=== PATIENT | female | born 1965 | race African-American/Black ===

== ENCOUNTER → 2018-03-24 | Outpatient (CLI) | payer OTHER ==
--- NOTE | 2018-03-24 12:54 | DIREP ---
PROCEDURE:XRAY SPINE LUMBAR MIN 4 VWS COMPARISON:None. INDICATIONS:M54.5 LOW BACK PAIN, M32.9 Systemic lupus erythematosus TECHNIQUE:AP, lateral, and coned down lateral views of the lumbar spine are provided. FINDINGS: ALIGNMENT:Normal. VERTEBRAE:Normal. DISK SPACES:Normal. SPONDYLOLISTHESIS:None. SACROILIAC JOINTS:Normal. OTHER:Normal. CONCLUSION:Normal lumbar spine Dictated by: Dashawn Sheehan DO on 03/24/2018 at 12:52 PM
== END | disposition home or self-care (01) ==
LOC: RAD 10:00
PROVIDERS: ATTEND Internal Medicine
DX: M54.5 Low back pain (principal); M32.9 Systemic lupus erythematosus, unspecified
CPT/HCPCS: 72110

== ENCOUNTER 2018-07-17 01:45 | Inpatient (IN) | payer OTHER ==
[2018-07-17] VITALS (7 sets, daily range): BP systolic 129–143; BP diastolic 52–95
[~2018-07-17] VITALS: Ht 160 cm; Wt 132.0 kg
--- NOTE | 2018-07-17 02:16 | ER.PDOC ---
General Chief Complaint: Requesting Medical Care Stated Complaint: R SIDE PAIN Time seen by MD: 02:00 Source: patient Exam Limitations: no limitations History of Present Illness Initial Comments Pt c/o RUQ/R chest pain since about 36 hours. Sharp pleuritic pain worse with inspiration. Also worsens when lying supine or on R side. No nausea or fever Severity/Quality: moderate Radiation: RUQ, epigastric, chest Associated Symptoms: denies symptoms Exacerbated by: supine, deep breaths Relieved By: upright position Allergies: Coded Allergies: No Known Allergies (Unverified , 07/17/18) Past Medical History Medical History: diabetes, high cholesterol, hypertension Constitutional: no symptoms reported EENTM: no symptoms reported Respiratory: other (Pain with deep inspiration) Cardiovascular: no symptoms reported Gastrointestinal: abdominal pain Genitourinary: no symptoms reported Musculoskeletal: no symptoms reported Skin: no symptoms reported Psychiatric/Neurological: no symptoms reported Endocrine: no symptoms reported Physical Exam General Appearance: Moderate Distress HEENT: PERRL/EOMI, Normal ENT Inspection, TMs Normal, Pharynx Normal Neck: Non-Tender, Full Range of Motion, Supple, Normal Inspection Respiratory: chest non-tender, lungs clear, normal breath sounds, other (splinting on deep inspiration) Cardiovascular: Normal Peripheral Pulses, Regular Rate, Rhythm, No Edema, No Gallop, No JVD, No Murmur 1 - tender Gastrointestinal: Normal Bowel Sounds, Guarding, Tenderness (RUQ) Back: Normal Inspection, No CVA Tenderness, No Vertebral Tenderness Extremities: Normal Range of Motion, Non-Tender, Normal Inspection, No Pedal Edema, No Calf Tenderness, Normal Capillary Refill, Pelvis Stable 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, No Motor/Sensory Deficits, Alert, Normal Mood/Affect, Oriented x 3 Skin: Normal Color, Warm/Dry EKG/XRAY/CT/US XRAY Comments: RLL infiltrate with small effusion Departure Time of Disposition: 03:31 Disposition: 09 ADMITTED INPATIENT Impression: Primary Impression: Pneumonia Condition: Stable Referrals: ROCKY WILKERSON MD (PCP) PRIMARY CARE PROVIDER ALFONSO GALEANO MD Duration or Time Spent with Pa: 30 Problem Qualifiers Primary Impression: Pneumonia Pneumonia type: due to unspecified organism Laterality: right Lung location: lower lobe of lung Qualified Codes: J18.1 - Lobar pneumonia, unspecified organism JOSS HULL MD July 17, 2018 02:16
[2018-07-17 02:21] LABS: BILIRUBIN,URINE NEGATIVE (NEGATIVE); UROBILINOGEN,URINE NORMAL (NEGATIVE)
[2018-07-17] MEDS ORDERED: PHENERGAN IV STA (02:21)
[2018-07-17] MEDS ORDERED: MORPHINE SULFATE IV STA (02:21)
[2018-07-17 02:23] LABS: BASOPHIL % 0.5 % (0.0-0.2); EOSINOPHIL % 0.5 % (0.0-5.0); LYMPHOCYTES # 2.1 10^3/uL (1.0-4.8); LYMPHOCYTES % 24.1 % (24.0-44.0); MEAN CELL HGB 26.1 pg (26-34); MEAN CELL HGB CONCENTRATION 33.2 g/dL (33-37); MEAN CORP VOLUME 78.6 fL (78-100); MONOCYTES # 0.9 10^3/uL (0.3-0.8); NEUTROPHIL # 5.6 10^3/uL (1.8-7.7); NEUTROPHILS % 64.8 % (41.0-85.0); RED CELL DISTRIBUTION WIDTH 15.9 % (11.5-14.5); WHITE BLOOD CELL 8.7 10^3/uL (4.5-11.0)
[2018-07-17 02:30] LABS: APPEARANCE,URINE CLEAR (CLEAR); UA COLOR YELLOW (YELLOW)
[2018-07-17] MEDS ORDERED: PHENERGAN ONE (02:31)
[2018-07-17 02:39] LABS: CALCIUM 9.9 mg/dL (8.4-10.5); CARBON DIOXIDE 27.4 mmol/L (20.0-32)
--- NOTE | 2018-07-17 02:40 | NUR ---
Critical Lab Value Critical Lab Value called back from lab. D-Dimer:1.65. Notified Dr. Patton of lab value
--- NOTE | 2018-07-17 03:12 | DIREP ---
PROCEDURE:CHEST 2 VIEWS COMPARISON:None. INDICATIONS:RUQ/R chest pain FINDINGS: LUNGS/PLEURA:There are streaky infiltrates in the bilateral lung bases. No evidence of consolidation or pleural effusion VASCULATURE:Normal. Unremarkable pulmonary vasculature. CARDIAC:Normal. No cardiac silhouette abnormality or cardiomegaly. MEDIASTINUM:Normal. No visible mass or adenopathy. BONES:Normal. No fracture or visible bony lesion. OTHER:Negative. CONCLUSION:Bilateral basilar atelectasis versus developing pneumonia Dictated by: Jennifer Bautista M.D. on 07/17/2018 at 03:09 AM
--- NOTE | 2018-07-17 03:17 | DIREP ---
PROCEDURE:CT ABD/PELVIS WITH CONTRAST TECHNIQUE:No oral contrast was given. Following the intravenous administration of contrast material, axial cuts were obtained from the dome of the diaphragm to the ischial tuberosities. The images were viewed at lung, liver, bone, and soft tissue settings. Sagittal and coronal reconstructions are provided. COMPARISON:None. INDICATIONS:RUQ/R chest pain FINDINGS: LOWER CHEST:There is a small right pleural effusion. Streaky infiltrates are present in the right lung base. LIVER:Normal. BILIARY:Normal. PANCREAS:Normal. SPLEEN:Normal. URINARY TRACT:Normal. ADRENALS:Normal. AORTA/VASCULAR:Normal. RETROPERITONEUM:Normal. BOWEL/MESENTERY:Bowel evaluation is limited by the lack of oral contrast. No evidence of bowel obstruction, free intraperitoneal air, or abscess. The appendix is normal. ABDOMINAL WALL:Normal. PELVIS:Normal. BONES:Normal. OTHER:Normal. CONCLUSION: Streaky infiltrate in the right lung base with a small right parapneumonic effusion suggestive of a developing right lower lobe pneumonia Dictated by: Jennifer Bautista M.D. on 07/17/2018 at 03:12 AM
--- NOTE | 2018-07-17 03:23 | NUR ---
Shari Fonseca on phone with Dr. Mccarthy
[2018-07-17] MEDS ORDERED: ROCEPHIN 1,000 MG in NS 100ML 100 ML IV STA (03:26)
[2018-07-17] MEDS ORDERED: ZITHROMAX 500 MG in NS 250ML 250 ML IV STA (03:26)
[2018-07-17] MEDS ORDERED: LOVENOX SQ STA (03:33)
[2018-07-17] MEDS ORDERED: LISI1TAB7 PO (03:37)
[2018-07-17] MEDS ORDERED: QUET200T PO (03:37)
[2018-07-17] MEDS ORDERED: METF500T17 PO (03:37)
[2018-07-17] MEDS ORDERED: TRAM50TA PO (03:37)
[2018-07-17] MEDS ORDERED: GLIM2TAB2 PO (03:37)
[2018-07-17] MEDS ORDERED: TRAZ-163 PO (03:37)
[2018-07-17] MEDS ORDERED: ATOR-2 PO (03:37)
[2018-07-17] MEDS ORDERED: HYDR-3097 PO (03:37)
[2018-07-17] MEDS ORDERED: ROCEPHIN ONE ×2 (03:42→22:15)
[2018-07-17] MEDS ORDERED: NS 250ML 250 ML IV ONE ×2 (03:42→23:11)
[2018-07-17] MEDS ORDERED: NS 100ML 100 ML IV ONE ×2 (03:42→22:16)
[2018-07-17] MEDS ORDERED: LOVENOX SQ ONE ×3 (03:43→03:50)
--- NOTE | 2018-07-17 04:25 | NUR ---
Report Report given to Giovanni on med Surg
--- NOTE | 2018-07-17 12:03 | PCM.HP ---
HISTORY & PHYSICAL HISTORY & PHYSICAL DATE OF ADMISSION: CHIEF COMPLAINT: 53 yo female with mmp including DM, HTN, and ADAN comes in with R chest pain and RUQ abdominal pain. CT and CXR c/w R basilar pneumonia and parapneumonic effusion. Admit for IV Abx. H&P # [id number] HISTORY OF PRESENT ILLNESS: ALLERGIES: CURRENT MEDICATIONS: PAST MEDICAL HISTORY: SOCIAL HISTORY: FAMILY HISTORY: REVIEW OF SYSTEMS: PHYSICAL EXAMINATION: GENERAL: VITAL SIGNS: HEENT: NECK: LUNGS: HEART: ABDOMEN: EXTREMITIES: NEUROLOGIC: LABORATORY DATA: IMPRESSION: CARE PLAN: ALFONSO GALEANO MD July 17, 2018 12:03
--- NOTE | 2018-07-17 12:17 | HPH ---
ADMIT DATE: 07/17/2018 Dictating a history and physical at [facility]. CHIEF COMPLAINT: Right upper quadrant and lower chest pain. HISTORY OF PRESENT ILLNESS: This is a 53-year-old female with multiple medical problems including diabetes and hypertension, who presents to the Emergency Department with complaints of the right upper quadrant abdominal pain and right lower chest pain for the last 2 days. She states that the pain started suddenly over a matter of one hour and she describes the pain as sharp, with worsening pain whenever she takes a deep breath. She states pain is also worse when lying on her right side. There are no alleviating factors. She has not had any other chest pain or shortness of breath. No nausea or fever. She has had an intermittent cough, which makes the pain in the right lower chest worse. She has had slight increase in weakness. She denies ever having symptoms like this in the past. She denies any sick contacts. PAST MEDICAL HISTORY: 1. Diabetes mellitus type 2. 2. Hypertension. 3. Hyperlipidemia. 4. Morbid obesity. 5. Obstructive sleep apnea. MEDICATIONS: See admit medication reconciliation form. PAST SURGICAL HISTORY: Reviewed. SOCIAL HISTORY: Alcohol, tobacco: None. Recreational drugs: None. The patient lives in [place] with family. FAMILY HISTORY: Multiple family members with hypertension and diabetes. REVIEW OF SYSTEMS: GENERAL: Overall, positive for weakness, fatigue and malaise over the last 2 days. Denies fever. CARDIAC: Denies typical cardiac pain, but does have right-sided lower chest pain. No orthopnea, PND or palpitation. RESPIRATORY: Positive for cough, but no shortness of breath. Slight increased in right-sided chest pain with deep breath. GASTROINTESTINAL: Positive for nausea, but no constipation, diarrhea, or vomiting. Positive for right upper quadrant pain. GENITOURINARY: Denies dysuria, frequency, hematuria or nocturia. HEMATOLOGIC: No easy bleeding or bruising. ENDOCRINE: No recent weight loss or weight gain. No temperature intolerance. HEMATOLOGIC: No easy bleeding or bruising. NEUROLOGIC: Denies headache, paresthesias or dizziness. MUSCULOSKELETAL: No complaints of bones, muscles or joints. PSYCHIATRIC: Denies depression or anxiety symptoms. OBJECTIVE: VITAL SIGNS: Temperature 98.3, pulse 70, respirations 16, blood pressure 139/72, pulse ox 90% on room air. GENERAL: This is a morbidly obese female, in no acute distress. HEENT: Atraumatic, normocephalic. Sclerae are clear and anicteric. Oral mucosa is moist. NECK: Soft, supple, normal range of motion. No bruits, goiter, mass or adenopathy. LUNGS: Decreased breath sounds at right base, otherwise clear. HEART: Regular rate and rhythm without murmurs, S3 or S4. ABDOMEN: Soft, nontender, nondistended. Positive bowel sounds. No masses felt. EXTREMITIES: Warm and well perfused without evidence of edema, cyanosis or clubbing. NEUROLOGIC: Cranial nerves 2-12 are grossly intact and symmetric. SKIN: Intact. LABORATORY DATA: Sodium 141, potassium 4.1, BUN 18, creatinine 1.33, glucose 117. WBC 8.7, hemoglobin 17, hematocrit 51.2, platelets 298. Urinalysis 5-10 wbc's with rare bacteria. CT abdomen and pelvis -- "streaky infiltrate in the right lung base with a small right parapneumonic effusion suggestive of a developing right lower lobe pneumonia." Chest x-ray -- atelectasis and infiltrate in the right base. ASSESSMENT: 1. Right basilar community-acquired pneumonia. 2. Right upper quadrant abdominal pain. 3. Right-sided chest pain. 4. Hypertension. 5. Diabetes mellitus type 2. 6. Obstructive sleep apnea. 7. Erythrocytosis. PLAN: 1. The patient is admitted to [facility] for further evaluation and management. 2. Start IV antibiotic coverage for community-acquired pneumonia. 3. Aggressive IV fluid resuscitation. 4. Nebulizer treatments as needed. 5. Continue CPAP at night per patient's prescription. 6. Stress ulcer and DVT prophylaxis. Marcel Mccarthy MD DR: LUCIANO/itzel JOB# [id number]
--- NOTE | 2018-07-17 14:21 | NUR ---
DISCHARGE PLAN CM VISITED WITH PT REGARDING D/C PLAN. SHE SAID SHE LIVES AT HOME ALONE AND IS INDEPENDENT OF ADLS. SHE IS NOT EMPLOYED BUT IS ON SSI DISABILITY. SHE SAID SHE WAS HERE IN [place] SEEING HER BOYFRIEND. PATIENT SAID SHE DOES HAVE A CANE THAT SHE USES AT TIME WITH AMBULATION. HER PCP IS DR RANGEL. SHE DOES HAVE THE FINANCIAL ABILITY TO PAY FOR HER MEDICATIONS AND DENIES FURTHER RESOURCES OR NEEDS AT THIS TIME. D/C GOAL IS FOR PT TO D/C BACK HOME ALONE AND CONTINUE ROUTINE CARE THERE. CM WILL CONTINUE TO FOLLOW NEEDS OF PT.
--- NOTE | 2018-07-17 15:36 | NUR ---
NEW ORDERS GIVEN FROM DR. GALEANO: GIVE TORADOL 30MG Q6 PRN.
[2018-07-17] MEDS: TORADOL IV PRN ×2 (15:40→22:46)
--- NOTE | 2018-07-17 18:50 | NUR ---
REPORT RECEIVED FROM MAMIE MIR RN. ASSUMED PT CARE.
--- NOTE | 2018-07-17 22:05 | NUR ---
TELEPHONE ORDER PER DR GALEANO: DR GALEANO NOTIFIED THAT PT DOES NOT HAVE ANY ANTIBIOTICS ON EMAR. TELEPHONE ORDER GIVEN FOR: 1 - ZITHROMAX 500MG IV Q24HRS 2 - ROCEPHIN 1GM IV Q 12HRS TO [facility].
[2018-07-17] MEDS ORDERED: NS 500ML 500 ML IV ONE (22:17)
[2018-07-17] MEDS: ROCEPHIN 1,000 MG in NS 100ML 100 ML IV SCH (22:30)
[2018-07-17] MEDS: ZITHROMAX 500 MG in NS 250ML 250 ML IV SCH (23:27)
[2018-07-18 00:28] VITALS: BP 119/68
[2018-07-18 04:19] VITALS: BP 141/72
[2018-07-18 05:15] LABS: HEMOGLOBIN 15.1 g/dL (12.0-15.0); MEAN CELL HGB 26.2 pg (26-34); MEAN CELL HGB CONCENTRATION 32.9 g/dL (33-37); MEAN CORP VOLUME 79.5 fL (78-100); MEAN PLATELET VOLUME 11.2 fL (7.8-11.0); RED CELL DISTRIBUTION WIDTH 15.5 % (11.5-14.5); WHITE BLOOD CELL 9.1 10^3/uL (4.5-11.0)
[2018-07-18 05:38] LABS: CALCIUM 9.5 mg/dL (8.4-10.5); CARBON DIOXIDE 28.1 mmol/L (20.0-32)
--- NOTE | 2018-07-18 07:12 | NUR ---
REPORT TO ONCOMING SHIFT. PT CARE RELINQUISHED.
--- NOTE | 2018-07-18 07:20 | NUR ---
RESTING QUIETLY IN BED. DENIES COMPLAINTS. VS TAKEN.
--- NOTE | 2018-07-18 07:50 | NUR ---
BREAKFAST TRAY SERVED. PT SITTING UP IN BED. DENIES COMPLAINTS
[2018-07-18] MEDS: PROTONIX PO SCH (08:24)
--- NOTE | 2018-07-18 08:24 | NUR ---
MED GIVEN. PT SITTING UP IN BED EATING BREAKFAST. SMILING AND LAUGHING AND DENIES COMPLAINTS.
[2018-07-18 08:43] VITALS: BP 151/88
[2018-07-18] MEDS: TORADOL IV PRN (08:46)
--- NOTE | 2018-07-18 08:46 | NUR ---
TORADOL IV GIVEN FOR PAIN 8/10 SHARP PAIN "UNDER RIBS" RIGHT SIDE. PT GIVEN TEACHING ON MED GIVEN, S/E AND PURPOSE. QUESTIONS WERE ANSWERED. PT SITTING UP IN BED DRINKING COFFEE.
--- NOTE | 2018-07-18 09:10 | NUR ---
SITTING UP IN BED USING IS PULLING 1500ML
[2018-07-18] MEDS: ROCEPHIN 1,000 MG in NS 100ML 100 ML IV SCH ×2 (09:23→20:41)
--- NOTE | 2018-07-18 09:25 | NUR ---
REPORTS PAIN RELIEF. SITTING UP IN BED WATCHING TV. DENIES COMPLAINTS
--- NOTE | 2018-07-18 11:45 | NUR ---
RESTING QUIETLY IN BED. LUNCH TRAY SERVED. DENIES COMPLAINTS
[2018-07-18 12:10] VITALS: BP 140/74
--- NOTE | 2018-07-18 13:25 | NUR ---
RESTING QUIETLY IN BED. DENIES COMPLAINTS
--- NOTE | 2018-07-18 15:45 | NUR ---
RESTING QUIETLY IN BED. EYES CLOSED. RESP UNLABORED.
[2018-07-18 17:00] VITALS: BP 147/86
--- NOTE | 2018-07-18 17:00 | NUR ---
SUPPER TRAY TAKEN AND VS TAKEN. PT DENIES COMPLAINTS.
--- NOTE | 2018-07-18 17:59 | PRM.PN ---
Subjective Subjective Date: July 18, 2018 Time: 17:55 Subjective Feeling better overall. Less SOB. Cough improving. VTE VTE Risk Total Score: 2 VTE Risk Score VTE Risk: Score 0-1 = Low Risk (Aggressive mobilization; early ambulation; no VTE prophylaxis required) Score 2: Moderate Risk (Intermittent/Pneumatic Compression Device OR Lovenox/Heparin/Coumadin) Score 3-4: High Risk (Intermittent/Pneumatic Compression Device AND Lovenox/Heparin/Coumadin) Score > or =5: Highest Risk (Intermittent/Pneumatic Compression Device AND Lovenox/Heparin/Coumadin) Review of Systems Constitutional: No: Fever, Chills, Sweats, Weakness, Malaise, Other Respiratory: Cough, Shortness of breath; No: Dry, SOB with excertion, Wheezing, Hemoptysis, Pleuritic Pain, Sputum, Wheezing, Other Cardiovascular: No: Chest Pain, Palpitations, Orthopnea, Paroxysmal Noc. Dyspnea, Edema, Lt Headedness, Other Gastrointestinal: No: Nausea, Vomiting, Abdominal Pain, Diarrhea, Constipation, Melena, Hematochezia, Other Genitourinary: No Dysuria, No Frequency, No Incontinence, No Hematuria, No Retention, No Other Neurological: No: Weakness, Numbness, Incoordination, Change in speech, Confusion, Seizures, Other Allergies: Coded Allergies: No Known Allergies (Unverified , 07/17/18) Scheduled Atorvastatin Calcium (Atorvastatin Calcium), 80 MG PO DAILY24, (Reported) Glimepiride (Glimepiride), 2 MG PO DAILY24, (Reported) Hydrocodone Bit/Acetaminophen (Hobbs 5-325), 5-325 MG PO QID, (Reported) Lisinopril/Hydrochlorothiazide (Lisinopril-Hctz 20-25 Mg Tab), 20-25 MG PO DAILY24, (Reported) Metformin Hcl (Metformin Hcl), 500 MG PO DAILY24, (Reported) Quetiapine Fumarate (Quetiapine Fumarate), 200 MG PO DAILY24, (Reported) Tramadol Hcl (Tramadol Hcl), 50 MG PO QID, (Reported) Trazodone Hcl (Trazodone Hcl), 50 MG PO DAILY24, (Reported) Objective Vitals and I/O Vital Sign - Last 24 Hours 07/17/18 07/17/18 07/18/18 07/18/18 19:53 22:57 00:28 04:19 Temp 98.4 98.5 98.8 98.4 98.5 98.8 Pulse 65 54 54 Resp 18 16 16 B/P (MAP) 129/73 (91) 119/68 (85) 141/72 (95) Pulse Ox 90 94 96 O2 Delivery Room Air Room Air Room Air Room Air 07/18/18 07/18/18 07/18/18 08:43 08:53 12:10 Temp 98.8 98.1 98.8 98.1 Pulse 56 60 Resp 20 18 B/P (MAP) 151/88 (109) 140/74 (96) Pulse Ox 95 96 O2 Delivery Room Air Room Air Room Air Intake and Output 07/17/18 07/17/18 07/18/18 14:59 22:59 06:59 Intake Total 240 ml 640 ml Output Total 600 ml Balance 240 ml 40 ml General: Alert, Oriented X3, Cooperative, No acute distress HEENT: Atraumatic, PERRLA Neck: Supple, No JVD Lungs: Clear to auscultation Heart: Regular rate, Normal S1, Normal S2, No murmurs Abdomen: Normal bowel sounds, Soft, No tenderness, No masses Extremities: No clubbing, No cyanosis, No edema, Normal pulses, No tenderness/swelling Neuro: Normal gait, Normal speech, Strength at 5/5 X4 ext, Normal tone, Sensation intact All Results(Lab/Rad) Laboratory Tests Test 07/18/18 04:59 White Blood Count 9.1 10^3/uL Red Blood Count 5.77 10^6/uL Hemoglobin 15.1 g/dL Hematocrit 45.9 % Mean Corpuscular Volume 79.5 fL Mean Corpuscular Hemoglobin 26.2 pg Mean Corpuscular Hemoglobin Concent 32.9 g/dL Red Cell Distribution Width 15.5 % Platelet Count 249 10^3/uL Mean Platelet Volume 11.2 fL Sodium Level 144 mmol/L Potassium Level 3.4 mmol/L Chloride Level 108.0 mmol/L Carbon Dioxide Level 28.1 mmol/L Anion Gap 11.3 Blood Urea Nitrogen 15 mg/dL Creatinine 1.23 mg/dL Estimated GFR () 55.1 BUN/Creatinine Ratio 12.0 Glucose Level 98 mg/dL Calcium Level 9.5 mg/dL Total Bilirubin 0.4 mg/dL Aspartate Amino Transf (AST/SGOT) 18 U/L Alanine Aminotransferase (ALT/SGPT) 24 U/L Alkaline Phosphatase 78 U/L Total Protein 6.9 g/dL Albumin 2.6 g/dL Globulin 4.3 Current Medications Medications (Trade) Dose Ordered Sig/Annika Route PRN Reason Start Time Stop Time Status Last Admin Dose Admin Morphine Sulfate (Morphine Sulfate) 4 mg OT STAT IV 07/17/18 02:21 07/17/18 02:23 DC 07/17/18 02:38 Promethazine HCl (Phenergan) 12.5 mg OT STAT IV 07/17/18 02:21 07/17/18 02:23 DC 07/17/18 02:38 Promethazine HCl (Phenergan) 25 mg STK-MED ONCE .ROUTE 07/17/18 02:31 07/17/18 02:33 DC Ceftriaxone Sodium 1000 mg/ Sodium Chloride 100 ml @ 100 mls/hr OT STAT IV 07/17/18 03:26 07/17/18 04:25 DC 07/17/18 03:56 Azithromycin 500 mg/Sodium Chloride 250 ml @ 175 mls/hr OT STAT IV 07/17/18 03:26 07/17/18 04:51 DC 07/17/18 04:22 Enoxaparin Sodium (Lovenox) 120 mg STAT STAT SQ 07/17/18 03:33 07/17/18 03:37 DC 07/17/18 03:56 Sodium Chloride 100 ml @ ud STK-MED ONCE IV 07/17/18 03:42 07/17/18 03:44 DC Ceftriaxone Sodium (Rocephin) 1,000 mg STK-MED ONCE .ROUTE 07/17/18 03:42 07/17/18 03:44 DC Sodium Chloride 250 ml @ ud STK-MED ONCE IV 07/17/18 03:42 07/17/18 03:44 DC Enoxaparin Sodium (Lovenox) 40 mg STK-MED ONCE SQ 07/17/18 03:43 07/17/18 03:45 DC Enoxaparin Sodium (Lovenox) 80 mg STK-MED ONCE SQ 07/17/18 03:43 07/17/18 03:45 DC Enoxaparin Sodium (Lovenox) 150 mg STK-MED ONCE SQ 07/17/18 03:50 07/17/18 03:51 DC Pantoprazole Sodium (Protonix) 40 mg DAILY PO 07/18/18 09:00 08/17/18 08:59 07/18/18 08:24 Ketorolac Tromethamine (Toradol) 30 mg Q6HR PRN IV PAIN 4 - 6 07/17/18 16:00 07/22/18 15:59 07/18/18 08:46 Ceftriaxone Sodium 1000 mg/ Sodium Chloride 100 ml @ 100 mls/hr Q12HR IV 07/17/18 22:30 08/16/18 22:29 07/18/18 09:23 Azithromycin 500 mg/Sodium Chloride 250 ml @ 175 mls/hr Q24HRS IV 07/17/18 23:30 08/16/18 23:29 07/17/18 23:27 Ceftriaxone Sodium (Rocephin) 1,000 mg STK-MED ONCE .ROUTE 07/17/18 22:15 07/17/18 22:17 DC Sodium Chloride 100 ml @ ud STK-MED ONCE IV 07/17/18 22:16 07/17/18 22:18 DC Sodium Chloride 500 ml @ ud STK-MED ONCE IV 07/17/18 22:17 07/17/18 22:18 DC Sodium Chloride 250 ml @ STK-MED ONCE IV 07/17/18 23:11 07/17/18 23:12 DC Course Sepsis Screening Results: Posi: NEGATIVE Sepsis Qualifier/Stage: NO DEFINITE RISK Duration or Total Time Spent w: 30 Vitals & review Data Vital Sign - Last 24 Hours 07/17/18 07/17/18 07/18/18 07/18/18 19:53 22:57 00:28 04:19 Temp 98.4 98.5 98.8 98.4 98.5 98.8 Pulse 65 54 54 Resp 18 16 16 B/P (MAP) 129/73 (91) 119/68 (85) 141/72 (95) Pulse Ox 90 94 96 O2 Delivery Room Air Room Air Room Air Room Air 07/18/18 07/18/18 07/18/18 08:43 08:53 12:10 Temp 98.8 98.1 98.8 98.1 Pulse 56 60 Resp 20 18 B/P (MAP) 151/88 (109) 140/74 (96) Pulse Ox 95 96 O2 Delivery Room Air Room Air Room Air Intake and Output 07/17/18 07/17/18 07/18/18 14:59 22:59 06:59 Intake Total 240 ml 640 ml Output Total 600 ml Balance 240 ml 40 ml Laboratory Tests Test 07/17/18 01:58 07/17/18 02:15 07/18/18 04:59 Urine Collection Type VOID Urine Color YELLOW Urine Appearance CLEAR Urine Bilirubin NEGATIVE MG/DL Urine Ketones NEGATIVE Urine Specific [place] 1.015 Urine pH 6 Urine Protein NEGATIVE Urine Urobilinogen NORMAL Urine Nitrate NEGATIVE Urine Leukocyte Esterase NEGATIVE Urine Blood 50 2+ Urine RBC 0-2 RBC/HPF Urine WBC 5-10 WBC/HPF Urine Squamous Epithelial Cells MANY #/HPF Urine Bacteria RARE Urine Glucose NORMAL White Blood Count 8.7 10^3/uL 9.1 10^3/uL Red Blood Count 6.51 10^6/uL 5.77 10^6/uL Hemoglobin 17.0 g/dL 15.1 g/dL Hematocrit 51.2 % 45.9 % Mean Corpuscular Volume 78.6 fL 79.5 fL Mean Corpuscular Hemoglobin 26.1 pg 26.2 pg Mean Corpuscular Hemoglobin Concent 33.2 g/dL 32.9 g/dL Red Cell Distribution Width 15.9 % 15.5 % Platelet Count 298 10^3/uL 249 10^3/uL Mean Platelet Volume 11.0 fL 11.2 fL Neutrophils (%) (Auto) 64.8 % Lymphocytes (%) (Auto) 24.1 % Monocytes (%) (Auto) 10.0 % Neutrophils # (Auto) 5.6 10^3/uL Lymphocytes # (Auto) 2.1 10^3/uL Monocytes # (Auto) 0.9 10^3/uL Absolute Immature Granulocyte (auto 0.01 10^3 u/L Immature Granulocytes % 0.10 % Eosinophils % 0.5 % Basophils % 0.5 % Basophils # 0.0 10^3/uL Eosinophil Count 0.0 10^3/uL D-Dimer 1.65 mg/L Sodium Level 141 mmol/L 144 mmol/L Potassium Level 4.1 mmol/L 3.4 mmol/L Chloride Level 105.0 mmol/L 108.0 mmol/L Carbon Dioxide Level 27.4 mmol/L 28.1 mmol/L Anion Gap 12.7 11.3 Blood Urea Nitrogen 18 mg/dL 15 mg/dL Creatinine 1.33 mg/dL 1.23 mg/dL Estimated GFR () 50.3 55.1 BUN/Creatinine Ratio 13.0 12.0 Glucose Level 117 mg/dL 98 mg/dL Calcium Level 9.9 mg/dL 9.5 mg/dL Total Bilirubin 0.4 mg/dL 0.4 mg/dL Aspartate Amino Transf (AST/SGOT) 21 U/L 18 U/L Alanine Aminotransferase (ALT/SGPT) 28 U/L 24 U/L Alkaline Phosphatase 108 U/L 78 U/L Total Protein 8.1 g/dL 6.9 g/dL Albumin 3.4 g/dL 2.6 g/dL Globulin 4.7 4.3 Lipase 259 U/L Helicobacter pylori Screen POSITIVE Current Medications Medications (Trade) Dose Ordered Sig/Annika PRN Reason Start Time Stop Time Status Last Admin Azithromycin 500 mg/Sodium Chloride 250 ml @ 175 mls/hr Q24HRS 07/17/18 23:30 08/16/18 23:29 07/17/18 23:27 Ceftriaxone Sodium 1000 mg/ Sodium Chloride 100 ml @ 100 mls/hr Q12HR 07/17/18 22:30 08/16/18 22:29 07/18/18 09:23 Ketorolac Tromethamine (Toradol) 30 mg Q6HR PRN PAIN 4 - 6 07/17/18 16:00 07/22/18 15:59 07/18/18 08:46 Pantoprazole Sodium (Protonix) 40 mg DAILY 07/18/18 09:00 08/17/18 08:59 07/18/18 08:24 Sepsis Infection Criteria Pres: Documented Infection LEVEL 1 SEPSIS INFECTION CRITE: ABX Therapy LEVEL 2-SIRS (LIST ALL THAT AP: None/Not assessed Cardiovascular Evidence: Not Assessed or None Hematologic Evidence: None/Not assessed Hepatic Evidence: None/Not assessed Metabolic Evidence: None/Not assessed Neurological Evidence: None/Not assessed Respiratory Evidence: None/Not assessed Renal Evidence: None/Not assessed O2 Sat by Pulse Oximetry: 96 Oxygen Flow Rate: 2.00 Assessment/Plan Assessment/Plan Assessment/Plan 1. Right basilar community-acquired pneumonia - Sx improving. - Continue abx. 2. Right upper quadrant abdominal pain - Slowly improving. Secondary to #1. 3. Right-sided chest pain - Resolving. 4. Hypertension - Continue meds. 5. Diabetes mellitus type 2 - Cont SSI. 6. Obstructive sleep apnea - Needs to bring in CPAP from home. ALFONSO GALEANO MD July 18, 2018 17:58
--- NOTE | 2018-07-18 18:05 | NUR ---
SITTING UP IN BED TEXTING ON PHONE. DENIES COMPLAINTS
--- NOTE | 2018-07-18 18:30 | NUR ---
REPORT TO ONCOMING SHIFT. PT SITTING UP IN BED. TEXTING ON PHONE. DENIES COMPLAINTS
[2018-07-18 19:00] VITALS: BP 127/68
[2018-07-18] MEDS: ZITHROMAX 500 MG in NS 250ML 250 ML IV SCH (23:28)
[2018-07-19 00:55] VITALS: BP 134/63
[2018-07-19 04:12] VITALS: BP 113/61
--- NOTE | 2018-07-19 06:33 | NUR ---
REPORT TO KEVIN HU
--- NOTE | 2018-07-19 06:38 | NUR ---
REPORT REPORT RECEIVED FROM BETINA ALVARADO LVN ASSUMED CARE OF PT
[2018-07-19 07:30] VITALS: BP 153/85
[2018-07-19] MEDS: PROTONIX PO SCH (08:26)
[2018-07-19] MEDS: ROCEPHIN 1,000 MG in NS 100ML 100 ML IV SCH (08:26)
[2018-07-19 14:32] VITALS: BP 153/91
[2018-07-19] MEDS ORDERED: AMOX1TAB63 PO (14:44)
--- NOTE | 2018-07-19 14:49 | PRM.PN ---
Subjective Subjective Date: Jul 19, 2018 Time: 14:48 Subjective Feeling better. No new problems. Breathing better. Strength much improved. VTE VTE Risk Total Score: 2 VTE Risk Score VTE Risk: Score 0-1 = Low Risk (Aggressive mobilization; early ambulation; no VTE prophylaxis required) Score 2: Moderate Risk (Intermittent/Pneumatic Compression Device OR Lovenox/Heparin/Coumadin) Score 3-4: High Risk (Intermittent/Pneumatic Compression Device AND Lovenox/Heparin/Coumadin) Score > or =5: Highest Risk (Intermittent/Pneumatic Compression Device AND Lovenox/Heparin/Coumadin) Review of Systems Constitutional: No: Fever, Chills, Sweats, Weakness, Malaise, Other Respiratory: Cough, Shortness of breath; No: Dry, SOB with excertion, Wheezing, Hemoptysis, Pleuritic Pain, Sputum, Wheezing, Other Cardiovascular: No: Chest Pain, Palpitations, Orthopnea, Paroxysmal Noc. Dyspnea, Edema, Lt Headedness, Other Gastrointestinal: No: Nausea, Vomiting, Abdominal Pain, Diarrhea, Constipation, Melena, Hematochezia, Other Genitourinary: No Dysuria, No Frequency, No Incontinence, No Hematuria, No Retention, No Other Neurological: No: Weakness, Numbness, Incoordination, Change in speech, Confusion, Seizures, Other Allergies: Coded Allergies: No Known Allergies (Unverified , 07/17/18) Scheduled Amoxicillin/Potassium Clav (Augmentin 875-125 Tablet), 1 EACH PO BID Atorvastatin Calcium (Atorvastatin Calcium), 80 MG PO DAILY24, (Reported) Glimepiride (Glimepiride), 2 MG PO DAILY24, (Reported) Hydrocodone Bit/Acetaminophen ([place] 5-325), 5-325 MG PO QID, (Reported) Lisinopril/Hydrochlorothiazide (Lisinopril-Hctz 20-25 Mg Tab), 20-25 MG PO DAILY24, (Reported) Metformin Hcl (Metformin Hcl), 500 MG PO DAILY24, (Reported) Quetiapine Fumarate (Quetiapine Fumarate), 200 MG PO DAILY24, (Reported) Tramadol Hcl (Tramadol Hcl), 50 MG PO QID, (Reported) Trazodone Hcl (Trazodone Hcl), 50 MG PO DAILY24, (Reported) Objective Vitals and I/O Vital Sign - Last 24 Hours 07/17/18 07/17/18 07/18/18 07/18/18 19:53 22:57 00:28 04:19 Temp 98.4 98.5 98.8 98.4 98.5 98.8 Pulse 65 54 54 Resp 18 16 16 B/P (MAP) 129/73 (91) 119/68 (85) 141/72 (95) Pulse Ox 90 94 96 O2 Delivery Room Air Room Air Room Air Room Air 07/18/18 07/18/18 07/18/18 08:43 08:53 12:10 Temp 98.8 98.1 98.8 98.1 Pulse 56 60 Resp 20 18 B/P (MAP) 151/88 (109) 140/74 (96) Pulse Ox 95 96 O2 Delivery Room Air Room Air Room Air Intake and Output 07/17/18 07/17/18 07/18/18 14:59 22:59 06:59 Intake Total 240 ml 640 ml Output Total 600 ml Balance 240 ml 40 ml General: Alert, Oriented X3, Cooperative, No acute distress HEENT: Atraumatic, PERRLA Neck: Supple, No JVD Lungs: Clear to auscultation Heart: Regular rate, Normal S1, Normal S2, No murmurs Abdomen: Normal bowel sounds, Soft, No tenderness, No masses Extremities: No clubbing, No cyanosis, No edema, Normal pulses, No tenderness/swelling Neuro: Normal gait, Normal speech, Strength at 5/5 X4 ext, Normal tone, Sensation intact All Results(Lab/Rad) Laboratory Tests Test 07/18/18 04:59 White Blood Count 9.1 10^3/uL Red Blood Count 5.77 10^6/uL Hemoglobin 15.1 g/dL Hematocrit 45.9 % Mean Corpuscular Volume 79.5 fL Mean Corpuscular Hemoglobin 26.2 pg Mean Corpuscular Hemoglobin Concent 32.9 g/dL Red Cell Distribution Width 15.5 % Platelet Count 249 10^3/uL Mean Platelet Volume 11.2 fL Sodium Level 144 mmol/L Potassium Level 3.4 mmol/L Chloride Level 108.0 mmol/L Carbon Dioxide Level 28.1 mmol/L Anion Gap 11.3 Blood Urea Nitrogen 15 mg/dL Creatinine 1.23 mg/dL Estimated GFR () 55.1 BUN/Creatinine Ratio 12.0 Glucose Level 98 mg/dL Calcium Level 9.5 mg/dL Total Bilirubin 0.4 mg/dL Aspartate Amino Transf (AST/SGOT) 18 U/L Alanine Aminotransferase (ALT/SGPT) 24 U/L Alkaline Phosphatase 78 U/L Total Protein 6.9 g/dL Albumin 2.6 g/dL Globulin 4.3 Current Medications Medications (Trade) Dose Ordered Sig/Annika Route PRN Reason Start Time Stop Time Status Last Admin Dose Admin Morphine Sulfate (Morphine Sulfate) 4 mg OT STAT IV 07/17/18 02:21 07/17/18 02:23 DC 07/17/18 02:38 Promethazine HCl (Phenergan) 12.5 mg OT STAT IV 07/17/18 02:21 07/17/18 02:23 DC 07/17/18 02:38 Promethazine HCl (Phenergan) 25 mg STK-MED ONCE .ROUTE 07/17/18 02:31 07/17/18 02:33 DC Ceftriaxone Sodium 1000 mg/ Sodium Chloride 100 ml @ 100 mls/hr OT STAT IV 07/17/18 03:26 07/17/18 04:25 DC 07/17/18 03:56 Azithromycin 500 mg/Sodium Chloride 250 ml @ 175 mls/hr OT STAT IV 07/17/18 03:26 07/17/18 04:51 DC 07/17/18 04:22 Enoxaparin Sodium (Lovenox) 120 mg STAT STAT SQ 07/17/18 03:33 07/17/18 03:37 DC 07/17/18 03:56 Sodium Chloride 100 ml @ ud STK-MED ONCE IV 07/17/18 03:42 07/17/18 03:44 DC Ceftriaxone Sodium (Rocephin) 1,000 mg STK-MED ONCE .ROUTE 07/17/18 03:42 07/17/18 03:44 DC Sodium Chloride 250 ml @ ud STK-MED ONCE IV 07/17/18 03:42 07/17/18 03:44 DC Enoxaparin Sodium (Lovenox) 40 mg STK-MED ONCE SQ 07/17/18 03:43 07/17/18 03:45 DC Enoxaparin Sodium (Lovenox) 80 mg STK-MED ONCE SQ 07/17/18 03:43 07/17/18 03:45 DC Enoxaparin Sodium (Lovenox) 150 mg STK-MED ONCE SQ 07/17/18 03:50 07/17/18 03:51 DC Pantoprazole Sodium (Protonix) 40 mg DAILY PO 07/18/18 09:00 08/17/18 08:59 07/18/18 08:24 Ketorolac Tromethamine (Toradol) 30 mg Q6HR PRN IV PAIN 4 - 6 07/17/18 16:00 07/22/18 15:59 07/18/18 08:46 Ceftriaxone Sodium 1000 mg/ Sodium Chloride 100 ml @ 100 mls/hr Q12HR IV 07/17/18 22:30 08/16/18 22:29 07/18/18 09:23 Azithromycin 500 mg/Sodium Chloride 250 ml @ 175 mls/hr Q24HRS IV 07/17/18 23:30 08/16/18 23:29 07/17/18 23:27 Ceftriaxone Sodium (Rocephin) 1,000 mg STK-MED ONCE .ROUTE 07/17/18 22:15 07/17/18 22:17 DC Sodium Chloride 100 ml @ ud STK-MED ONCE IV 07/17/18 22:16 07/17/18 22:18 DC Sodium Chloride 500 ml @ ud STK-MED ONCE IV 07/17/18 22:17 07/17/18 22:18 DC Sodium Chloride 250 ml @ ud STK-MED ONCE IV 07/17/18 23:11 07/17/18 23:12 DC Course Sepsis Screening Results: Posi: NEGATIVE Sepsis Qualifier/Stage: NO DEFINITE RISK Duration or Total Time Spent w: 30 Vitals & review Data Vital Sign - Last 24 Hours 07/17/18 07/17/18 07/18/18 07/18/18 19:53 22:57 00:28 04:19 Temp 98.4 98.5 98.8 98.4 98.5 98.8 Pulse 65 54 54 Resp 18 16 16 B/P (MAP) 129/73 (91) 119/68 (85) 141/72 (95) Pulse Ox 90 94 96 O2 Delivery Room Air Room Air Room Air Room Air 07/18/18 07/18/18 07/18/18 08:43 08:53 12:10 Temp 98.8 98.1 98.8 98.1 Pulse 56 60 Resp 20 18 B/P (MAP) 151/88 (109) 140/74 (96) Pulse Ox 95 96 O2 Delivery Room Air Room Air Room Air Intake and Output 07/17/18 07/17/18 07/18/18 14:59 22:59 06:59 Intake Total 240 ml 640 ml Output Total 600 ml Balance 240 ml 40 ml Laboratory Tests Test 07/17/18 01:58 07/17/18 02:15 07/18/18 04:59 Urine Collection Type VOID Urine Color YELLOW Urine Appearance CLEAR Urine Bilirubin NEGATIVE MG/DL Urine Ketones NEGATIVE Urine Specific [place] 1.015 Urine pH 6 Urine Protein NEGATIVE Urine Urobilinogen NORMAL Urine Nitrate NEGATIVE Urine Leukocyte Esterase NEGATIVE Urine Blood 50 2+ Urine RBC 0-2 RBC/HPF Urine WBC 5-10 WBC/HPF Urine Squamous Epithelial Cells MANY #/HPF Urine Bacteria RARE Urine Glucose NORMAL White Blood Count 8.7 10^3/uL 9.1 10^3/uL Red Blood Count 6.51 10^6/uL 5.77 10^6/uL Hemoglobin 17.0 g/dL 15.1 g/dL Hematocrit 51.2 % 45.9 % Mean Corpuscular Volume 78.6 fL 79.5 fL Mean Corpuscular Hemoglobin 26.1 pg 26.2 pg Mean Corpuscular Hemoglobin Concent 33.2 g/dL 32.9 g/dL Red Cell Distribution Width 15.9 % 15.5 % Platelet Count 298 10^3/uL 249 10^3/uL Mean Platelet Volume 11.0 fL 11.2 fL Neutrophils (%) (Auto) 64.8 % Lymphocytes (%) (Auto) 24.1 % Monocytes (%) (Auto) 10.0 % Neutrophils # (Auto) 5.6 10^3/uL Lymphocytes # (Auto) 2.1 10^3/uL Monocytes # (Auto) 0.9 10^3/uL Absolute Immature Granulocyte (auto 0.01 10^3 u/L Immature Granulocytes % 0.10 % Eosinophils % 0.5 % Basophils % 0.5 % Basophils # 0.0 10^3/uL Eosinophil Count 0.0 10^3/uL D-Dimer 1.65 mg/L Sodium Level 141 mmol/L 144 mmol/L Potassium Level 4.1 mmol/L 3.4 mmol/L Chloride Level 105.0 mmol/L 108.0 mmol/L Carbon Dioxide Level 27.4 mmol/L 28.1 mmol/L Anion Gap 12.7 11.3 Blood Urea Nitrogen 18 mg/dL 15 mg/dL Creatinine 1.33 mg/dL 1.23 mg/dL Estimated GFR () 50.3 55.1 BUN/Creatinine Ratio 13.0 12.0 Glucose Level 117 mg/dL 98 mg/dL Calcium Level 9.9 mg/dL 9.5 mg/dL Total Bilirubin 0.4 mg/dL 0.4 mg/dL Aspartate Amino Transf (AST/SGOT) 21 U/L 18 U/L Alanine Aminotransferase (ALT/SGPT) 28 U/L 24 U/L Alkaline Phosphatase 108 U/L 78 U/L Total Protein 8.1 g/dL 6.9 g/dL Albumin 3.4 g/dL 2.6 g/dL Globulin 4.7 4.3 Lipase 259 U/L Helicobacter pylori Screen POSITIVE Current Medications Medications (Trade) Dose Ordered Sig/Annika PRN Reason Start Time Stop Time Status Last Admin Azithromycin 500 mg/Sodium Chloride 250 ml @ 175 mls/hr Q24HRS 07/17/18 23:30 08/16/18 23:29 07/17/18 23:27 Ceftriaxone Sodium 1000 mg/ Sodium Chloride 100 ml @ 100 mls/hr Q12HR 07/17/18 22:30 08/16/18 22:29 07/18/18 09:23 Ketorolac Tromethamine (Toradol) 30 mg Q6HR PRN PAIN 4 - 6 07/17/18 16:00 07/22/18 15:59 07/18/18 08:46 Pantoprazole Sodium (Protonix) 40 mg DAILY 07/18/18 09:00 08/17/18 08:59 07/18/18 08:24 Sepsis Infection Criteria Pres: Documented Infection LEVEL 1 SEPSIS INFECTION CRITE: ABX Therapy LEVEL 2-SIRS (LIST ALL THAT AP: None/Not assessed Cardiovascular Evidence: Not Assessed or None Hematologic Evidence: None/Not assessed Hepatic Evidence: None/Not assessed Metabolic Evidence: None/Not assessed Neurological Evidence: None/Not assessed Respiratory Evidence: None/Not assessed Renal Evidence: None/Not assessed O2 Sat by Pulse Oximetry: 95 Oxygen Flow Rate: 2.00 Assessment/Plan Assessment/Plan Assessment/Plan 1. Right basilar community-acquired pneumonia - Sx improving. - Continue abx. 2. Right upper quadrant abdominal pain - Slowly improving. Secondary to #1. 3. Right-sided chest pain - Resolving. 4. Hypertension - Continue meds. 5. Diabetes mellitus type 2 - Cont SSI. 6. Obstructive sleep apnea - Needs to bring in CPAP from home. Plan 1. Right basilar community-acquired pneumonia - Sx improving. - Continue abx. 2. Right upper quadrant abdominal pain - Slowly improving. Secondary to #1. 3. Right-sided chest pain - Resolving. 4. Hypertension - Continue meds. 5. Diabetes mellitus type 2 - Cont SSI. 6. Obstructive sleep apnea - Needs to bring in CPAP from home. ALFONSO GALEANO MD Jul 19, 2018 14:49
[2018-07-19 16:20] VITALS: BP 153/91
--- NOTE | 2018-07-19 16:20 | NUR ---
D/C D/C INSTRUCTIONS GIVEN TO PT ON REGULAR LEVEL OF ACTIVITY, REGULAR DIET, FOLLOW UP WITH PRIMARY CARE DOCTOR WITHIN 1 WEEK, AND PURPOSE AND SIDE EFFECTS OF AUGMENTIN. NO S/S OF DISTRESS NOTED. PT'S IVS DISCONTINUED IN LEFT FORE ARM AND RIGHT HAND. D/C'D PER ASEPTIC TECHNIQUE. NO S/S OF INFECTION NOTED AT SITES. PT WRITTEN UNDERSTANDING OBTAINED. PT OFF OF UNIT VIA AMBULATION AND AMBULATED WITH THIS NURSE TO PRIVATE VEHICLE TO GO HOME IN. RELINQUISHED CARE OF PT.
== END 2018-07-19 17:21 | disposition home or self-care (01) | DRG 139 ==
LOC: ER 01:45 → MS 03:33 → EDPENDDISTM 07-19 14:40 → EDPENDDISDT 07-19 14:40 → EDPENDDISTM 07-19 16:20
PROVIDERS: ADMIT Internal Medicine; ATTEND Internal Medicine
DX: J18.1 Lobar pneumonia, unspecified organism (principal); J91.8 Pleural effusion in other conditions classified elsewhere; E66.01 Morbid (severe) obesity due to excess calories; D75.1 Secondary polycythemia; Z68.43 Body mass index [BMI] 50.0-59.9, adult; E11.9 Type 2 diabetes mellitus without complications; G47.33 Obstructive sleep apnea (adult) (pediatric); I10 Essential (primary) hypertension; Z79.899 Other long term (current) drug therapy; E78.00 Pure hypercholesterolemia, unspecified; R07.89 Other chest pain; E78.5 Hyperlipidemia, unspecified; Z82.49 Family history of ischemic heart disease and other diseases of the circulatory system; Z83.3 Family history of diabetes mellitus
CPT/HCPCS: 36415; 71046; 74177; 80053; 81000; 83690; 85025; 85027; 85379; 86677; 87040; 87086; 99285; G0378; J0456; J0696; J1650; J1885; J2550; J7040; J7050; Q9965

== ENCOUNTER → 2018-07-22 | Outpatient (CLI) | payer OTHER ==
[~2018-07-22] MED LIST: AMOX1TAB63 PO; ATOR-2 PO; GLIM2TAB2 PO; HYDR-3097 PO; LISI1TAB7 PO; METF500T17 PO; QUET200T PO; TRAM50TA PO; TRAZ-163 PO
--- NOTE | 2018-07-22 17:36 | DIREP ---
PROCEDURE:CTA CHEST COMPARISON:None. INDICATIONS:R79.89 ABNORMAL FINDINGS ON BLOOD CHEMISTRY, R09.02 HYPOXEMIA TECHNIQUE:Post contrast axial images through the chest with multiplanar MIP/3D reconstructions. FINDINGS: PULMONARY ARTERIES:Patent. LUNGS:No significant pulmonary parenchymal abnormalities. CARDIAC:Normal size heart and normal pulmonary vascularity. RV:LV ratio (norm <0.9): Not applicable in the absence of pulmonary embolism. THYROID:Normal. THORACIC AORTA:Normal. MEDIASTINUM:Normal. PLEURA:Normal. BONES:Normal. OTHER:Hepatic steatosis. CONCLUSION:No acute visualized cardiopulmonary process. Specifically, there is no visualized pulmonary embolus Dictated by: Dashawn Sheehan DO on 07/22/2018 at 05:33 PM
== END | disposition home or self-care (01) ==
LOC: RAD 16:20
PROVIDERS: ATTEND Internal Medicine
DX: K76.0 Fatty (change of) liver, not elsewhere classified (principal); M32.9 Systemic lupus erythematosus, unspecified; R94.6 Abnormal results of thyroid function studies
CPT/HCPCS: 71275; Q9967

== ENCOUNTER → 2018-08-19 | Outpatient (CLI) | payer OTHER ==
--- NOTE | 2018-08-19 14:58 | PCM.EKG ---
[facility] Test Date: 2018-08-19 Test Time: 14:57:56 Pat Name: OMAR SMITH Department: Room: Gender: F [employer]: RT : 1965 Requested By: ROCKY WILKERSON Order Number: [id number] Reading MD: Magen Zee Measurements Intervals [place] Rate: 91 P: 59 MS: 148 QRS: 62 QRSD: 78 T: 58 QT: 374 QTc: 460 Interpretive Statements Normal sinus rhythm Normal EKG No previous ECG available for comparison Electronically Signed On 08-25-2018 6:55:03 CDT by Magen Zee Please click the below link to view image of tracing.
--- NOTE | 2018-08-19 17:41 | DIREP ---
PROCEDURE:XRAY SPINE LUMBAR MIN 4 VWS COMPARISON:[facility], , XRAY SPINE LUMBAR MIN 4 VWS, 03/24/2018, 10:11 AM. INDICATIONS:M54.5 LOW BACK PAIN FINDINGS: ALIGNMENT:No significant scoliosis. Mild exaggerated lumbar lordosis. Grade 1 anterolisthesis of L3 on L4 measures approximately 5 mm. VERTEBRAE:No compression deformity or acute fracture. DISK SPACES:Minimal disc space narrowing at L3-L4 with associated mild spondylosis. Mild facet arthropathy of the lumbar spine. SPONDYLOLISTHESIS:Grade 1 anterolisthesis of L3 on L4 as discussed above. SACROILIAC JOINTS:Unremarkable. CONCLUSION: 1. No acute osseous abnormality. 2. Low-grade degenerative disc and spine disease with grade 1 anterolisthesis of L3 on L4 as discussed above. Dictated by: Reza Hernández M.D. On 08/19/2018 at 05:38 PM
--- NOTE | 2018-08-19 17:42 | DIREP ---
PROCEDURE:XRAY HIP MIN 2VW-LT COMPARISON:None. INDICATIONS:M25.559 Pain in unspecified hip FINDINGS: BONES:No acute fracture. JOINTS:No significant degenerative changes of the left hip. SOFT TISSUES:No suspicious abnormality. OTHER:No additional findings. CONCLUSION:No acute osseous abnormality or significant degenerative changes of the left hip. Dictated by: Reza Hernández M.D. on 08/19/2018 at 05:40 PM
--- NOTE | 2018-08-19 17:43 | DIREP ---
PROCEDURE:XRAY HIP MIN 2VW-RT COMPARISON:None. INDICATIONS:M25.559 Pain in unspecified hip FINDINGS: BONES:No acute fracture. JOINTS:No significant degenerative changes of the right hip. SOFT TISSUES:No suspicious abnormality. OTHER:No additional findings. CONCLUSION:No acute osseous abnormality or significant degenerative changes of the right hip. Dictated by: Reza Hernández M.D. on 08/19/2018 at 05:41 PM
--- NOTE | 2018-08-19 17:44 | DIREP ---
PROCEDURE:XRAY KNEE 2 VWS-RT COMPARISON:None. INDICATIONS:M25.561 Pain in right knee FINDINGS: BONES:No acute fracture. JOINTS:Moderate degenerative changes of the lateral femoral tibial compartment with mild degenerative changes of the medial and patellofemoral compartments. This is evidenced by joint space narrowing and osteophyte formation. SOFT TISSUES:Small suprapatellar joint effusion. OTHER:No additional findings. CONCLUSION: 1. No acute osseous abnormality. 2. Tricompartmental osteoarthrosis with small suprapatellar joint effusion. Dictated by: Reza Hernández M.D. On 08/19/2018 at 05:42 PM
== END | disposition home or self-care (01) ==
LOC: RAD 14:41
PROVIDERS: ATTEND Internal Medicine
DX: M51.36 Other intervertebral disc degeneration, lumbar region (principal); M17.11 Unilateral primary osteoarthritis, right knee; M25.461 Effusion, right knee; M48.061 Spinal stenosis, lumbar region without neurogenic claudication; M43.16 Spondylolisthesis, lumbar region
CPT/HCPCS: 72110; 73502; 73521; 73560; 93005